=== PATIENT | male | born 1945 | race Caucasian/White ===

== ENCOUNTER 2020-08-16 01:04 | Emergency (ER) | payer MEDICARE, SELFPAY ==
[2020-08-16 01:30] VITALS: BP 160/59; PULSE 70; RESP 20; TEMP 36.9; O2SAT 100
--- NOTE | 2020-08-16 02:43 | ED.EPISTAXIS ---
HPI - Epistaxis General Chief complaint: Epistaxis Stated complaint: Nose bleed Time Seen by Provider: 08/16/20 02:29 Source: patient Mode of arrival: ambulatory Limitations: no limitations History of Present Illness HPI Narrative: [facility] 75-[facility] nosebleed. Patient states that he has been getting them more frequently in the recent past. He was originally told that this was due to dry air in his home. Patient states he bought a humidifier and started using [place] supplement in his nose to aid in moisture. Patient states after doing this this worked well to help his symptoms. He notes that last night he started to have a bleed and it would not stop bleeding. He states normally after holding 15 minutes of pressure he is able to get it to stop spontaneously. Patient states he tried 3 different 15-minute holds and was unable to get the bleeding to stop, this is why he came to the emergency department. Related Data Home Medications Medication Instructions Recorded Confirmed lisinopril-hydrochlorothiazide tablet 08/16/20 simvastatin mg 08/16/20 Allergies Allergy/AdvReac Type Severity Reaction Status Date / Time No Known Allergies Allergy Verified 08/16/20 06:14 Review of Systems Review of Systems: Narrative: CONSTITUTIONAL: Denies fever, chills, or sweats. EYES: Denies visual changes, redness, or discharge. ENT: Denies rhinorrhea, congestion, sore throat, or otalgia. Endorses epistaxis. CARDIOVASCULAR: Denies chest pain, palpitations, or edema. RESPIRATORY: Denies cough or dyspnea. GASTROINTESTINAL: Denies abdominal pain, nausea, vomiting, or diarrhea. GENITOURINARY: Denies dysuria or hematuria. SKIN: Denies rash or itching. MUSCULOSKELETAL: Denies back pain, joint pain, or myalgia. NEUROLOGIC: Denies headache, numbness, dizziness, or weakness. PSYCHIATRIC: Denies anxiety or depression. COUNTS INCLUDE 234 BEDS AT THE [facility] Social History Social History Gender identity (if verbalized by the patient): Male Exam Narrative: Exam Narrative: GENERAL: Well-appearing, well-nourished, and in no acute distress. HEAD: Normocephalic, atraumatic. EYES: PERRLA and EOMI. ENT: Nares clear, no rhinorrhea. Mucous membranes moist. [place] epistaxis right nare. NECK: Supple. No adenopathy or masses. No carotid bruits or JVD CHEST: Clear to auscultation. No respiratory distress. No wheezes rales or rhonchi HEART: Regular rate and rhythm. No murmur heard. Normal peripheral pulses. ABDOMEN: Soft, nontender, nondistended, normal active bowel sounds. EXTREMITIES: Normal range of motion. No edema. SKIN: Warm, dry, no rash. NEURO: No focal deficits. Alert and oriented x3. PSYCH: Normal mood and affect. Course Reevaluation(s) Reevaluation #1: Patient reevaluated, he is resting calmly in the room. Finally it seems though the patient has hemostasis achieved. We will plan for discharge. Time: 06:12 Vital Signs Vital signs: Vital Signs Temperature 36.9 C 08/16/20 01:30 Pulse Rate 70 08/16/20 01:30 Respiratory Rate 20 08/16/20 01:30 Blood Pressure 160/59 H 08/16/20 01:30 Pulse Oximetry 100 08/16/20 01:30 Temperature 36.9 C 08/16/20 01:30 Pulse Rate 70 08/16/20 01:30 Respiratory Rate 20 08/16/20 01:30 Blood Pressure 160/59 H 08/16/20 01:30 Pulse Oximetry 100 08/16/20 01:30 MDM - Epistaxis MDM Narrative Medical decision making narrative: In brief this 75-year-old male came into the emergency department with complaints of a nosebleed. Patient was initially evaluated and had a nose clamp placed in triage. This unfortunately did not work to stop this bleeding. He then had Afrin and a Rhino Rocket placed by me. After period of observation this did not work to control his bleeding, he was having continued seepage around the rapid Rhino. After this instilled more Afrin, gave the patient a period of observation, d
[2020-08-16] MEDS: COCAINE HCL (*CRX) 4% TOP SOLN 4 ML VIAL 1 APPLIC TOPICAL (02:50)
[2020-08-16] MEDS: TRANEXAMIC ACID 1,000 MG/10 ML AMPUL 1000 MG TOPICAL (05:27)
[2020-08-16] MEDS: OXYMETAZOLINE HCL 0.05% NAS 15 ML BTL (*BKC) 2 SPRAY NASAL (05:27)
--- NOTE | 2020-08-16 06:05 | PC.NURSE ---
Pt. family member left phone number to call when pt. is d/c. [phone]
[2020-08-16 06:11] VITALS: BP 156/72; PULSE 69; RESP 16; O2SAT 97
== END 2020-08-16 06:15 | disposition home or self-care (01) ==
PROVIDERS: Emergency Provider Emergency Medicine; PCP Student in an Organized Health Care Education/Training Program
DX: R04.0 Epistaxis (principal)
CPT/HCPCS: 30901; 30903; 99283; A9270

== ENCOUNTER 2020-09-03 14:31 | Emergency (ER) | payer MEDICARE, SELFPAY ==
[2020-09-03 14:33] VITALS: BP 175/74; PULSE 68; RESP 18; TEMP 36.6; O2SAT 100
--- NOTE | 2020-09-03 16:03 | ED.EPISTAXIS ---
HPI - Epistaxis General Chief complaint: Epistaxis Stated complaint: bloody nose Time Seen by Provider: 09/03/20 14:35 Source: RN notes reviewed History of Present Illness HPI Narrative: Patient presents to emergency department from home for epistaxis. Patient states he began to have bleeding of his right nare approximately 1 hour ago. Patient notes history of epistaxis approximately 2 weeks ago and was seen in the emergency department with rapid Rhino placed out of the right nare at that time. Follow-up with Dr. Ferrer in the office was removed and had cautery done of the right nose states he was doing fine until today he denies any direct trauma or injury he denies any blood thinner use denies any other symptoms at this time Related Data Home Medications Medication Instructions Recorded Confirmed lisinopril-hydrochlorothiazide tablet 08/16/20 simvastatin mg 08/16/20 brimonidine drp 09/03/20 dorzolamide-timolol 09/03/20 dutasteride mg PO 09/03/20 09/03/20 Allergies Allergy/AdvReac Type Severity Reaction Status Date / Time No Known Allergies Allergy Verified 09/03/20 14:43 Review of Systems Review of Systems: Narrative: Gen.: Denies fevers or chills HEENT: See HPI Respiratory: Denies shortness of breath Neuro: Denies numbness, tingling, weakness Skin: Denies rash Endo: Denies DM PMFSH Past Medical History Medical History (Updated 09/03/20 @ 16:05 by Martinez Romero DO) Patient denies significant medical history Social History Social History (Updated 09/03/20 @ 16:04 by Martinez Romero DO) Smoking status: Never smoker Gender identity (if verbalized by the patient): Male Exam Narrative: Exam Narrative: APPEARANCE: No acute distress, nontoxic, resting in bed HEENT: Normocephalic, atraumatic, left nare normal appearance right nare has small area of pulsatile bleeding in the anterior nare on mucosa moist RESPIRATORY: No respiratory distress MUSCULOSKELETAl: Moves all extremities. NEURO: Awake and alert. Following commands, speech normal, no focal deficits SKIN:: Warm, dry. Normal Color PSYCHIATRIC: Normal affect/mood Course Course Emergency Course: Procedure note patient with lidocaine with 1% epinephrine placed on cotton swab and placed in the right nare following this the area of bleeding was visualized and it was cauterized with silver nitrate patient tolerated the procedure well Following revision with silver nitrate no further bleeding occurred Discussed Dr. Ferrer presentation work-up agrees with plan for discharge to follow-up as an outpatient Discussed with patient results of workup and diagnosis. Discussed need for follow-up with primary care, proper use of medication, and reasons to return to the emergency department. Patient understands and agrees to current treatment plan. Patient states he does have an appointment Dr. Ferrer at 9 AM in the morning Vital Signs Vital signs: Vital Signs Temperature 97.8 F 09/03/20 14:33 Pulse Rate 68 09/03/20 14:33 Respiratory Rate 18 09/03/20 14:33 Blood Pressure 175/74 H 09/03/20 14:33 Pulse Oximetry 100 09/03/20 14:33 Temperature 97.8 F 09/03/20 14:33 Pulse Rate 68 09/03/20 14:33 Respiratory Rate 18 09/03/20 14:33 Blood Pressure 175/74 H 09/03/20 14:33 Pulse Oximetry 100 09/03/20 14:33 Discharge Plan Discharge Clinical Impression: Epistaxis Patient Disposition: Home, Self-Care Condition: Stable Instructions: Antibiotic Form, Nosebleed (ED) Additional Instructions: Return for any further nosebleeds or any other symptoms of concern Prescriptions: No Action brimonidine 0.2 % drops RF: 0 dorzolamide-timolol 22.3-6.8 mg/mL drops RF: 0 dutasteride 0.5 mg capsule PO RF: 0 simvastatin 40 mg tablet RF: 0 lisinopril-hydrochlorothiazide 20-25 mg tablet RF: 0 Follow-up/Referrals: Lisandro Ferrer MD [Physician] - (Follow-up at your sc
== END 2020-09-03 16:28 | disposition home or self-care (01) ==
PROVIDERS: Emergency Provider Emergency Medicine; PCP Student in an Organized Health Care Education/Training Program
DX: R04.0 Epistaxis (principal)
CPT/HCPCS: 30901; 99282